=== PATIENT | female | born 1935 | race Caucasian/White ===

== ENCOUNTER 2021-05-23 17:45 | Inpatient (IN) | payer MEDICARE ==
[~2021-05-23] VITALS: Ht 149.9 cm; Wt 72.2 kg
[~2021-05-23 17:45] MED LIST: ATOR40TA78 PO; CELE50CA PO; LOSA25TA25 PO; WARF2.5T32 PO
[2021-05-23] MEDS ORDERED: RIVA20TA PO (18:03)
--- NOTE | 2021-05-23 18:50 | NUR ---
IV ESTABLISHED. CATH UA COLLECTED AND WALKED TO LAB
[2021-05-23] MEDS ORDERED: ONDANSETRON 2MG/ML, 2ML IVPush ONE (19:00)
[2021-05-23] MEDS ORDERED: MORPHINE SULFATE 4 MG/ML, 1ML IVPush PRN (19:00)
[2021-05-23] MEDS ORDERED: MORPHINE SULFATE 4 MG/ML, 1ML ONE (19:15)
[2021-05-23] MEDS ORDERED: ONDANSETRON 2MG/ML, 2ML ONE (19:15)
--- NOTE | 2021-05-23 19:21 | NUR ---
PT MEDICATED PER EMAR FOR 10/10 L FLANK/L ABD PAIN AND NAUSEA. PT REPORTS PAIN ONSET TODAY. HX OF RENAL STONES "THIS FEELS THE SAME". +HEMATURIA; DENIES DYSURIA/FEVER. BP/SPO2 MONITORING IN PLACE. ON 2L O2 BY NC FOR SUPPORT FOLLOWING RX
[2021-05-23 19:25] LABS: MICROSCOPIC INDICATED
[2021-05-23 19:46] LABS: BASOPHILS % (AUTO) 0 % (0-1); EOSINOPHILS % (AUTO) 0 % (1-7); LYMPHOCYTES % (AUTO) 6 % (22-44); MEAN CORPUSCULAR HEMOGLOBIN 28.4 pg (27.0-34.8); MEAN CORPUSCULAR HGB CONC 33.4 g/dL (32.4-35.8); MEAN PLATELET VOLUME 7.1 fL (7.4-10.4); MONOCYTES % (AUTO) 5 % (2-9); NEUTROPHILS % (AUTO) 88 % (42-75); PLATELET COUNT 223 x10^3/uL (130-400); RED BLOOD COUNT 4.76 x10^6/uL (3.82-5.3)
[2021-05-23 19:53] LABS: ALBUMIN 3.2 g/dL (3.4-5.0)
[2021-05-23 19:57] LABS: ALANINE AMINOTRANSFERASE 23 U/L (12-78); ALKALINE PHOSPHATASE 83 U/L (45-117); BILIRUBIN,TOTAL 0.5 mg/dL (0.2-1.0); TOTAL PROTEIN 6.7 g/dL (6.4-8.2)
[2021-05-23 20:03] LABS: ANION GAP 8 mmol/L (5-15); CHLORIDE 109 mmol/L (98-107)
--- NOTE | 2021-05-23 20:52 | NUR ---
PT RESTING IN GURNEY. DENIES NEED FOR ADDITIONAL PAIN/NAUSEA MEDICATIONS. SON AT BEDSIDE. SON/PT UPDATED TO POC (ADMIT) AND DEMONSTRATES UNDERSTANDING. NPO AFTER MIDNIGHT
[2021-05-23] MEDS ORDERED: ONDANSETRON 2MG/ML, 2ML IVPush PRN (22:00)
[2021-05-23] MEDS ORDERED: MELATONIN 5 MG TABLET PO PRN (22:00)
[2021-05-23] MEDS ORDERED: morphine SULFATE 10 MG/ML, 1ML IVPush PRN (22:00)
[2021-05-23] MEDS ORDERED: TAMSULOSIN 0.4 MG CAP.ER.24H PO ONE (22:00)
[2021-05-23] MEDS ORDERED: ACETAMINOPHEN 325 MG TABLET PO PRN (22:00)
[2021-05-23] MEDS ORDERED: KETOROLAC 30 MG/1 ML IV PRN (22:00)
[2021-05-23] MEDS ORDERED: TRAZODONE 50MG TABLET PO PRN (22:00)
--- NOTE | 2021-05-23 22:03 | NUR ---
PT TO RESTROOM WITH TECH. NO EVIDENCE OF VOMITING SINCE ARRIVAL TO ED
--- NOTE | 2021-05-23 22:38 | NUR ---
REPORT TO ROSE DOZIER. PT PREPARED FOR TRANSPORT.
[2021-05-23 22:49] VITALS: BP 123/73
[2021-05-23] MEDS ORDERED: PRED5DRO15 RIGHTEYE (22:53)
[2021-05-23] MEDS ORDERED: LATA5DRO EACHEYE (22:53)
[2021-05-23] MEDS: SODIUM CHLORIDE 0.9% 1,000 ML IV SCH (23:31)
[2021-05-24] MEDS: CIPROFLOXACIN/PMX 400MG/200ML 200 ML IV SCH ×3 (00:44→22:03)
[2021-05-24 02:35] VITALS: BP 102/65
[2021-05-24 05:17] LABS: BASOPHILS % (AUTO) 1 % (0-1); EOSINOPHILS % (AUTO) 0 % (1-7); LYMPHOCYTES % (AUTO) 6 % (22-44); MEAN CORPUSCULAR HEMOGLOBIN 28.5 pg (27.0-34.8); MEAN CORPUSCULAR HGB CONC 33.6 g/dL (32.4-35.8); MEAN PLATELET VOLUME 7.1 fL (7.4-10.4); MONOCYTES % (AUTO) 7 % (2-9); NEUTROPHILS % (AUTO) 86 % (42-75); PLATELET COUNT 199 x10^3/uL (130-400); RED BLOOD COUNT 4.59 x10^6/uL (3.82-5.3); RED CELL DISTRIBUTION WIDTH 15.1 % (9.6-15.2)
[2021-05-24 05:26] LABS: INTERNATIONAL NORMALIZED RATIO 1.04 (0.93-1.1); PROTHROMBIN TIME 11.1 Seconds (9.6-11.5)
[2021-05-24 05:27] LABS: CHLORIDE 109 mmol/L (98-107)
[2021-05-24 05:31] LABS: ANION GAP 5 mmol/L (5-15); CALCIUM 8.3 mg/dL (8.5-10.1); CREATININE 0.92 mg/dL (0.55-1.02)
[2021-05-24] MEDS: SODIUM CHLORIDE 0.9% 1,000 ML IV SCH ×2 (08:24→22:05)
[2021-05-24 08:41] VITALS: BP 100/52
[2021-05-24 08:49] VITALS: BP 105/65
[2021-05-24] MEDS ORDERED: OMNIPAQUE 350 MG/ML, 50 ML BOTTLE ONE (08:52)
[2021-05-24] MEDS ORDERED: MIDAZOLAM 1 MG/ML, 2ML ONE (10:08)
[2021-05-24] MEDS ORDERED: FENTANYL PF 100 MCG/2ML ONE (10:20)
[2021-05-24] MEDS ORDERED: METOCLOPRAMIDE 5 MG/ML, 2ML IV PRN (10:30)
[2021-05-24] MEDS ORDERED: KETOROLAC 30 MG/1 ML IV PRN (10:30)
[2021-05-24] MEDS ORDERED: OXYcodone 5 MG/5 ML ORAL.SOL UDC PO PRN (10:30)
[2021-05-24] MEDS ORDERED: DIAZEPAM 5 MG/ML, 2ML IV PRN ×2 (10:30)
[2021-05-24] MEDS ORDERED: hydrALAzine 20 MG/ML, 1ML IV PRN (10:30)
[2021-05-24] MEDS ORDERED: ONDANSETRON 2MG/ML, 2ML IVPush PRN (10:30)
[2021-05-24] MEDS ORDERED: LABETALOL 5MG/ML, 20ML IV PRN (10:30)
[2021-05-24] MEDS ORDERED: PROMETHAZINE 25 MG/ML, 1ML IV PRN (10:30)
[2021-05-24] MEDS ORDERED: MEPERIDINE/PF 25MG/0.5ML IVPush PRN (10:30)
[2021-05-24] MEDS ORDERED: HYDROmorphone 1 MG/ML, 1ML INJ IV PRN (10:30)
[2021-05-24] MEDS ORDERED: ALBUTEROL SULFATE 2.5 MG/3 ML NPPB PRN (10:30)
[2021-05-24] MEDS ORDERED: FENTANYL PF 100 MCG/2ML IV PRN (10:30)
[2021-05-24 13:09] VITALS: BP 106/62
[2021-05-24 19:15] VITALS: BP 102/62
[2021-05-25 01:33] VITALS: BP 101/59
[2021-05-25 05:15] LABS: BASOPHILS % (AUTO) 0 % (0-1); EOSINOPHILS % (AUTO) 0 % (1-7); LYMPHOCYTES % (AUTO) 8 % (22-44); MEAN CORPUSCULAR HEMOGLOBIN 28.3 pg (27.0-34.8); MEAN CORPUSCULAR HGB CONC 32.9 g/dL (32.4-35.8); MEAN PLATELET VOLUME 7.3 fL (7.4-10.4); MONOCYTES % (AUTO) 7 % (2-9); NEUTROPHILS % (AUTO) 85 % (42-75); PLATELET COUNT 183 x10^3/uL (130-400); RED BLOOD COUNT 4.16 x10^6/uL (3.82-5.3); RED CELL DISTRIBUTION WIDTH 15.4 % (9.6-15.2)
[2021-05-25 05:24] LABS: ANION GAP 3 mmol/L (5-15); CALCIUM 8.3 mg/dL (8.5-10.1); CHLORIDE 113 mmol/L (98-107)
[2021-05-25 05:25] LABS: CREATININE 0.66 mg/dL (0.55-1.02)
[2021-05-25] MEDS ORDERED: CIPR250T27 PO (08:00)
[2021-05-25 08:02] VITALS: BP 114/69
[2021-05-25] MEDS: SODIUM CHLORIDE 0.9% 1,000 ML IV SCH (08:51)
[2021-05-25] MEDS: CIPROFLOXACIN/PMX 400MG/200ML 200 ML IV SCH (10:03)
[2021-05-25 11:14] VITALS: BP 122/70
== END 2021-05-25 11:33 | disposition home or self-care (01) | DRG 660 ==
LOC: ED 23:43 → EDIP 23:44 → 4NE 23:58
PROVIDERS: ADMIT Internal Medicine; ATTEND Family Medicine
PROC: 0T9B30Z Drainage of Bladder with Drainage Device, Percutaneous Approach (ICD-10-PCS; 2021-05-23)
PROC: 0TC78ZZ Extirpation of Matter from Left Ureter, Via Natural or Artificial Opening Endoscopic (ICD-10-PCS; 2021-05-24)
PROC: BT1F1ZZ Fluoroscopy of Left Kidney, Ureter and Bladder using Low Osmolar Contrast (ICD-10-PCS; 2021-05-24)
PROC: 0T778DZ Dilation of Left Ureter with Intraluminal Device, Via Natural or Artificial Opening Endoscopic (ICD-10-PCS; principal; 2021-05-24 09:30)
DX: N13.2 Hydronephrosis with renal and ureteral calculous obstruction (principal); D68.59 Other primary thrombophilia; E11.9 Type 2 diabetes mellitus without complications; H40.9 Unspecified glaucoma; E86.0 Dehydration; K80.20 Calculus of gallbladder without cholecystitis without obstruction; K57.90 Diverticulosis of intestine, part unspecified, without perforation or abscess without bleeding; Z93.6 Other artificial openings of urinary tract status; Z90.710 Acquired absence of both cervix and uterus; Z88.0 Allergy status to penicillin; Z87.442 Personal history of urinary calculi; Z85.820 Personal history of malignant melanoma of skin; Z79.01 Long term (current) use of anticoagulants; Z85.3 Personal history of malignant neoplasm of breast; Z90.10 Acquired absence of unspecified breast and nipple
CPT/HCPCS: 36415; 74176; 74420; 80048; 80053; 81001; 82360; 85025; 85610; 87086; 87635; 88300; 93005; 96374; 96375; 99285; G0378; J0744; J2250; J2405; J3010; Q9967; C1769; C2617; J2270; J7030